=== PATIENT | female | born 1975 | race Caucasian/White ===

== ENCOUNTER → 2017-09-20 | Outpatient (CLI) | payer OTHER ==
[2016-07-19 00:07] VITALS: BP 95/62
[~2017-09-20] MED LIST: BENZ100C PO; HYDR-2758 PO; ONDA4TAB10 SL; PROAIR HFA8.5 GM INH
--- NOTE | 2017-09-20 17:06 | RAD ---
Pelvic ultrasound, 09/20/2017: History: Pain, recent endometrial ablation Transabdominal and transvaginal scans were obtained. The uterus is within normal limits in size measuring 8.6 x 4.6 x 4.8 cm. There is thickening of the central uterine echo complex which measures 1.6 cm in AP diameter. There is a tiny amount of fluid present centrally in the endometrial canal. The uterus is otherwise unremarkable. The ovaries are within normal limits in size. There is a 1.8 cm follicular cyst in the right ovary. There are smaller subcentimeter cysts in the left ovary. There is blood flow in both ovaries. No adnexal mass is seen. No free fluid is evident in the pelvis. IMPRESSION: 1. Mild thickening of the central uterine echo complex. 2. Small follicular cyst in the right ovary.
== END | disposition home or self-care (01) ==
LOC: US 15:13
PROVIDERS: ATTEND Obstetrics & Gynecology
DX: N83.01 Follicular cyst of right ovary (principal); Z98.890 Other specified postprocedural states
CPT/HCPCS: 76830; 76856

== ENCOUNTER 2017-10-26 12:37 | Emergency (ER) | payer BC, OTHER ==
[2017-10-26 12:54] LABS: URINE HCG POC HCG NEGATIVE (Negative)
[2017-10-26 13:33] LABS: ADD MAN DIFF? NO
[2017-10-26] MEDS: IV NORMAL SALINE 1000ML BAG 1,000 ML IV (13:43)
[2017-10-26] MEDS: FAMOTIDINE 20 MG/2 ML VIAL IVP (13:44)
[2017-10-26 13:47] LABS: BASO # 0.1 x10^3/uL (0.0-0.2); BASO % 1 % (0-3); EOS # 0.1 x10^3/uL (0.0-0.7); EOS % 3 % (0-3); HEMATOCRIT 42.9 % (36.0-47.0); HEMOGLOBIN 14.6 g/dL (12.0-15.5); LYMPH # 1.1 x10^3/uL (1.0-4.8); LYMPH % 23 % (24-48); MEAN CORPUSCULAR HEMOGLOBIN 34 pg (25-35); MEAN CORPUSCULAR HGB CONC 34 g/dL (31-37); MEAN CORPUSCULAR VOLUME 99 fL (79-100); MONO # 0.5 x10^3/uL (0.0-1.1); MONO % 10 % (0-9); NEUT % 64 % (31-73); PLATELET COUNT 264 x10^3/uL (140-400); RED BLOOD COUNT 4.34 x10^6/uL (3.50-5.40); RED CELL DISTRIBUTION WIDTH 12.3 % (11.5-14.5); WHITE BLOOD COUNT 4.7 x10^3/uL (4.0-11.0)
[2017-10-26 13:48] LABS: BILIRUBIN,URINE NEGATIVE (NEG); CLARITY,URINE CLEAR; COLOR,URINE YELLOW; GLUCOSE,URINE NEGATIVE (NEG); NITRITE,URINE NEGATIVE (NEG); PROTEIN,URINE NEGATIVE (NEG-TRACE)
[2017-10-26] MEDS: ONDANSETRON PF 4 MG/2 ML VIAL. IV (13:49)
[2017-10-26] MEDS: KETOROLAC 30 MG/ML INJ. IV (13:50)
[2017-10-26 13:52] LABS: ANION GAP 10 (6-14); BLOOD UREA NITROGEN 11 mg/dL (7-20); BUN/CREATININE RATIO 12 (6-20); CALCIUM 8.4 mg/dL (8.5-10.1); CARBON DIOXIDE 27 mmol/L (21-32); CHLORIDE 102 mmol/L (98-107); CREATININE 0.9 mg/dL (0.6-1.0); GFR 69.7; GLUCOSE 95 mg/dL (70-99); POTASSIUM 4.1 mmol/L (3.5-5.1); SODIUM 139 mmol/L (136-145)
[2017-10-26] MEDS: fentaNYL PF VIAL 100 MCG/2 ML VIAL IV ×2 (13:52→15:40)
[2017-10-26 13:56] LABS: ALBUMIN 3.6 g/dL (3.4-5.0); ALBUMIN/GLOBULIN RATIO 0.9 (1.0-1.7); ALK PHOS 71 U/L (46-116); ALT (SGPT) 17 U/L (14-59); AST (SGOT) 16 U/L (15-37); LIPASE 92 U/L (73-393); TOTAL BILIRUBIN 0.2 mg/dL (0.2-1.0); TOTAL PROTEIN 7.5 g/dL (6.4-8.2)
[2017-10-26 14:40] LABS: BACTERIA,URINE FEW /HPF (0-FEW); RBC,URINE OCC /HPF (0-2); SQUAMOUS EPITHELIAL CELL,UR MOD /LPF
== END 2017-10-26 16:35 | disposition home or self-care (01) ==
LOC: ER 12:37
DX: R10.30 Lower abdominal pain, unspecified (principal); R11.0 Nausea; R35.8 Other polyuria; R10.2 Pelvic and perineal pain; J45.909 Unspecified asthma, uncomplicated; F12.10 Cannabis abuse, uncomplicated; F17.200 Nicotine dependence, unspecified, uncomplicated; Z98.51 Tubal ligation status; Z86.19 Personal history of other infectious and parasitic diseases; Z88.8 Allergy status to other drugs, medicaments and biological substances; Z91.018 Allergy to other foods; Z91.048 Other nonmedicinal substance allergy status; Z88.5 Allergy status to narcotic agent
CPT/HCPCS: 36415; 80053; 81001; 81025; 83690; 85025; 87086; 96361; 96374; 96375; 96376; 99284-25; J1885; J2405; J3010; J7030; S0028

== ENCOUNTER 2018-12-04 06:45 | Emergency (ER) | payer BC ==
[~2018-12-04] VITALS: Ht 160 cm; Wt 81.6 kg
[~2018-12-04 06:45] MED LIST changes: +ALBU2.5V8 INH; -HYDR-2758 PO; +HYDR-2761 PO; -PROAIR HFA8.5 GM INH
[2018-12-04] MEDS ORDERED: MORPHINE SULFATE 4 MG/ML VIAL. IM ONE (07:30)
[2018-12-04] MEDS ORDERED: ONDANSETRON PF 4 MG/2 ML VIAL. IM ONE (07:30)
[2018-12-04] MEDS ORDERED: IV NORMAL SALINE 1000ML BAG 1,000 ML IV ONE (07:30)
[2018-12-04 07:41] LABS: BASO # 0.1 x10^3/uL (0.0-0.2); BASO % 1 % (0-3); EOS # 0.1 x10^3/uL (0.0-0.7); EOS % 2 % (0-3); HEMATOCRIT 43.4 % (36.0-47.0); HEMOGLOBIN 14.7 g/dL (12.0-15.5); LYMPH # 1.5 x10^3/uL (1.0-4.8); LYMPH % 21 % (24-48); MEAN CORPUSCULAR HEMOGLOBIN 33 pg (25-35); MEAN CORPUSCULAR HGB CONC 34 g/dL (31-37); MEAN CORPUSCULAR VOLUME 97 fL (79-100); MONO # 0.5 x10^3/uL (0.0-1.1); MONO % 7 % (0-9); NEUT # 4.8 x10^3uL (1.8-7.7); NEUT % 69 % (31-73); PLATELET COUNT 300 x10^3/uL (140-400); RED BLOOD COUNT 4.49 x10^6/uL (3.50-5.40); RED CELL DISTRIBUTION WIDTH 12.3 % (11.5-14.5)
[2018-12-04] MEDS ORDERED: IOHEXOL 300 MG/ML 100ML VIAL. IV ONE (07:45)
[2018-12-04 07:47] LABS: CREATININE 0.6 mg/dL (0.6-1.0); GFR 110.7; POTASSIUM 4.3 mmol/L (3.5-5.1)
[2018-12-04 07:53] LABS: ALBUMIN 3.3 g/dL (3.4-5.0); ALBUMIN/GLOBULIN RATIO 0.8 (1.0-1.7); TOTAL BILIRUBIN 0.3 mg/dL (0.2-1.0); TOTAL PROTEIN 7.2 g/dL (6.4-8.2)
[2018-12-04 07:54] LABS: PREG TEST PT QUAL NEGATIVE (NEG)
[2018-12-04] MEDS ORDERED: MORPHINE SULFATE 4 MG/ML VIAL. IV ONE (08:00)
[2018-12-04] MEDS ORDERED: ONDANSETRON PF 4 MG/2 ML VIAL. IV ONE (08:00)
--- NOTE | 2018-12-04 08:05 | PHYS DOC ---
Past Medical History Past Medical History: Asthma, Liver Disease, Other Additional Past Medical Histor: endometriosis, RECOVERING METH USER (KIMMIE THOMAS DO) Past Surgical History: Tubal ligation, Other Additional Past Surgical Histo: MULTIPLE CONE BX'S, uterine ablation, (KIMMIE THOMAS DO) Alcohol Use: Heavy Additional Information: BEER DAILY Drug Use: Marijuana Social History Narrative: LAST USE LAST NIGHT (KIMMIE THOMAS DO) Adult General Chief Complaint Chief Complaint: ABDOMINAL PAIN HPI HPI Patient is a 42 year old female presents to the due to chief complaint of right lower quadrant abdominal tenderness. Patient states that the pain started this morning. Patient states that she had a good bowel movement yesterday. She also states that yesterday evening she started having some diarrhea. Patient denies fever, chills, nausea, vomiting, dysuria, chest pain, shortness of breath. Patient states that she has had a tubal ligation. Patient states that she has history of hep C who has been treated with interferon. Patient does admit to being an active smoker, actively uses alcohol as well as marijuana. Patient describes the pain as sharp and that it is located in the right lower quadrant. Patient also denies vaginal bleeding, vaginal spotting, vaginal discharge. Patient states that she is has a history of uterine ablation. (KIMMIE THOMAS DO) Review of Systems Review of Systems Constitutional: Denies fever or chills HENT: Denies nasal congestion, sore throat, sinus tenderness Respiratory: Denies cough or shortness of breath Cardiovascular: Denies CP GI: Reports right lower quadrant abdominal tenderness : Denies dysuria or hematuria Musculoskeletal: Denies back pain or joint pain Skin: Denies rash or skin lesions Neurologic: Denies headache, focal weakness or sensory changes Complete systems were reviewed and found to be within normal limits, except as documented in this note. (KIMMIE THOMAS DO) Current Medications Current Medications Current Medications Medications (Trade) Dose Ordered Sig/[place] Start Time Stop Time Status Last Admin Dose Admin Acetaminophen/ Hydrocodone Bitart (Lortab 5/325) 1 tab 1X ONCE 12/04/18 10:45 12/04/18 10:46 DC 12/04/18 10:48 1 TAB Iohexol (Omnipaque 300 Mg/ml) 75 ml 1X ONCE 12/04/18 07:45 12/04/18 07:46 DC 12/04/18 08:15 75 ML Morphine Sulfate (Morphine Sulfate) 4 mg 1X ONCE 12/04/18 08:00 12/04/18 08:01 DC 12/04/18 07:54 4 MG Ondansetron HCl (Zofran) 4 mg 1X ONCE 12/04/18 08:00 12/04/18 08:01 DC 12/04/18 07:53 4 MG Sodium Chloride 1,000 ml @ 1,000 mls/hr 1X ONCE 12/04/18 07:30 12/04/18 08:29 DC 12/04/18 07:52 1,000 MLS/HR (ALEXI GAFFNEY DO) Allergies Allergies Allergies Coded Allergies Type Severity Reaction Last Updated Verified adhesive Allergy Intermediate 04/19/16 Yes metoclopramide HCl Allergy Intermediate hives 04/19/16 Yes morphine Allergy Intermediate ITCHY 04/19/16 Yes Uncoded Allergies Type Severity Reaction Last Updated Verified GREEN BEANS Allergy Unknown 04/28/14 (ALEXI GAFFNEY DO) Physical Exam Physical Exam Constitutional: Well developed, well nourished, no acute distress, non-toxic appearance. HENT: Normocephalic, atraumatic, normocaphalic Eyes: PERRL, EOMI Neck: Normal range of motion, no tenderness, supple Cardiovascular:Heart rate regular rhythm, no murmur Resp: Bilateral breath sounds clear to auscultation Abdomen: RLQ tenderness. guarding and rebound present. : On the pelvic exam Patient has right adnexal tenderness. No cervical motion tenderness. No vaginal discharge, bleeding or spotting. Skin: Warm, dry, no erythema, no rash. Back: No tenderness, no CVA tenderness. Extremities: No tenderness, ROM intact, no edema. Neurologic: Alert and oriented X 3, normal motor function, normal sensory function, no focal deficits noted. Psychologic: Affect normal, judgement normal, mood normal. (KIMMIE THOMAS DO) Current Patient Data Vital Signs Vital Signs Date Time Temp Pulse Resp B/P (MAP) Pulse Ox O2 Delivery O2 Flow Rate FiO2 12/04/18 10:48 16 97 Room Air 12/04/18 08:27 89 122/80 (94) 12/04/18 07:04 97.9 97.9 (ALEXI GAFFNEY DO) Lab Values Laboratory Tests Test 12/04/18 07:25 12/04/18 07:35 12/04/18 08:26 White Blood Count 7.0 x10^3/uL (4.0-11.0) Red Blood Count 4.49 x10^6/uL (3.50-5.40) Hemoglobin 14.7 g/dL (12.0-15.5) Hematocrit 43.4 % (36.0-47.0) Mean Corpuscular Volume 97 fL (79-100) Mean Corpuscular Hemoglobin 33 pg (25-35) Mean Corpuscular Hemoglobin Concent 34 g/dL (31-37) Red Cell Distribution Width 12.3 % (11.5-14.5) Platelet Count 300 x10^3/uL (140-400) Neutrophils (%) (Auto) 69 % (31-73) Lymphocytes (%) (Auto) 21 % (24-48) L Monocytes (%) (Auto) 7 % (0-9) Eosinophils (%) (Auto) 2 % (0-3) Basophils (%) (Auto) 1 % (0-3) Neutrophils # (Auto) 4.8 x10^3uL (1.8-7.7) Lymphocytes # (Auto) 1.5 x10^3/uL (1.0-4.8) Monocytes # (Auto) 0.5 x10^3/uL (0.0-1.1) Eosinophils # (Auto) 0.1 x10^3/uL (0.0-0.7) Basophils # (Auto) 0.1 x10^3/uL (0.0-0.2) Sodium Level 141 mmol/L (136-145) Potassium Level 4.3 mmol/L (3.5-5.1) Chloride Level 107 mmol/L (98-107) Carbon Dioxide Level 23 mmol/L (21-32) Anion Gap 11 (6-14) Blood Urea Nitrogen 12 mg/dL (7-20) Creatinine 0.6 mg/dL (0.6-1.0) Estimated GFR (Cockcroft-Gault) 110.7 BUN/Creatinine Ratio 20 (6-20) Glucose Level 110 mg/dL (70-99) H Calcium Level 9.0 mg/dL (8.5-10.1) Total Bilirubin 0.3 mg/dL (0.2-1.0) Aspartate Amino Transferase (AST) 19 U/L (15-37) Alanine Aminotransferase (ALT) 40 U/L (14-59) Alkaline Phosphatase 69 U/L (46-116) Total Protein 7.2 g/dL (6.4-8.2) Albumin 3.3 g/dL (3.4-5.0) L Albumin/Globulin Ratio 0.8 (1.0-1.7) L Serum Test, Qualitative Negative (NEG) Lactic Acid Level 1.3 mmol/L (0.4-2.0) Urine Collection Type Unknown Urine Color Yellow Urine Clarity Clear Urine pH 6.5 Urine Specific [place] 1.020 Urine Protein Negative mg/dL (NEG-TRACE) Urine Glucose (UA) Negative mg/dL (NEG) Urine Ketones (Stick) Negative mg/dL (NEG) Urine Blood Negative (NEG) Urine Nitrite Negative (NEG) Urine Bilirubin Negative (NEG) Urine Urobilinogen Dipstick 0.2 mg/dL (0.2 mg/dL) Urine Leukocyte Esterase Negative (NEG) Urine RBC 0 /HPF (0-2) Urine WBC 1-4 /HPF (0-4) Urine Squamous Epithelial Cells Many /LPF Urine Bacteria Moderate /HPF (0-FEW) Laboratory Tests 12/04/18 07:25 Laboratory Tests 12/04/18 07:25 (ALEXI GAFFNEY DO) EKG EKG [] (KIMMIE THOMAS E DO) Radiology/Procedures Radiology/Procedures CT STUDY ABDOMEN AND PELVIS WITH CONTRAST CLINICAL INDICATIONS: Right lower quadrant abdominal pain. TECHNIQUE: After IV infusion of 75 cc of Omnipaque 300, helical CT scanning of the abdomen and pelvis was performed. No GI contrast was administered. This may decrease the sensitivity to detect GI tract pathology. PQRS compliance Statement One or more of the following individualized dose reduction techniques were utilized for this study: 1. Automated exposure control 2. Adjustment of the mA and/or kV according to patient size 3. Use of iterative reconstruction technique COMPARISON: April 19, 2016. FINDINGS: The liver and spleen and pancreas and gallbladder are normal. No extrahepatic biliary ductal dilatation is seen. No adrenal mass is evident. Again seen is a hypodense nodule of the lateral aspect of the left kidney which measures 1.1 cm in size. This has not increased in size. This most likely is a small cyst. No hydronephrosis or hydroureter is seen. Urinary bladder wall is smooth. No dominant ovarian cyst or mass is evident. No uterine mass or fibroid is seen. No focal aneurysmal dilatation of the abdominal aorta is seen. No enlarged abdominal or pelvic lymphadenopathy is evident. The appendix is normal. The terminal ileum is unremarkable. No obstructive bowel pattern is seen. No free air or free fluid or mesenteric edema is seen. No lung base consolidation is evident. No lytic process is seen. IMPRESSION: No acute abnormality. Electronically signed by: Nimesh Pedro MD (12/04/2018 8:48 AM) [facility] (KIMMIE THOMAS DO) Impressions: PROCEDURE: PELVIS W/TV PELVIS W/TV Clinical Indication: Right-sided pelvic pain. Comparison: CT abdomen and pelvis with contrast, earlier same day. Pelvic ultrasound September 20, 2017. TECHNIQUE: Real-time ultrasound imaging of the pelvis using transabdominal and transvaginal window is performed. Findings: Urinary bladder is unremarkable. Uterus measures 6.6 x 3.8 x 4.3 cm. The myometrium is heterogeneous. There are punctate echogenicities of the lower uterine segment, stable from prior study. The endometrial stripe is normal measuring 4 mm. The left ovary measures 3.4 x 1.9 x 3 cm. There is a probable complex cyst that may be hemorrhagic in the central left ovary measuring up to 2.1 cm. Right ovary measures 2.2 x 1.8 x 1.9 cm. There is a functional cyst of the right ovary measuring up to 1.5 cm. There is normal blood flow in the ovaries. There is pelvic free fluid. No evidence of adnexal mass. IMPRESSION: 1. Probable small hemorrhagic cyst of the left ovary. 2. Normal blood flow in the ovaries. 3. Pelvic free fluid is probably physiologic. 4. Heterogeneous myometrium. (ALEXI GAFFNEY DO) Course & Med Decision Making Course & Med Decision Making Pertinent Labs and Imaging studies reviewed. (See chart for details) I have ordered labs, IV fluids, IV morphine, IV Zofran, CT abdomen and pelvis with IV contrast. Labs are within normal limits. Patient does not have WBC elevation. UA does not show UTI. Patient states that she took a Diflucan tablet yesterday and she just completed a course of antibiotics for dental infection. CT does not show any acute process. The appendix is normal. Abdomen pelvic exam shows that patient has right adnexal tenderness but no cervical motion tenderness. Patient also does not have any vaginal bleeding, vaginal spotting, vaginal discharge. I ordered an ultrasound of the pelvis as well as a transvaginal ultrasound. It Is Negative, Patient Can Be Discharged Home for Outpatient Follow-Up. I discussed the results as well as the plan of care patient. Appropriate discharge instructions given to patient to return to the emergency department and medical evaluation. (KIMMIE THOMAS DO) Dragon Disclaimer Dragon Disclaimer This electronic medical record was generated, in whole or in part, using a voice recognition dictation system. (KIMMIE THOMAS DO) Departure Departure Impression: Primary Impression: Pelvic pain Additional Impression: RLQ abdominal pain Disposition: 01 HOME, SELF-CARE Condition: IMPROVED Referrals: NO PCP (PCP) in 1-2 days Patient Instructions: Abdominal Pain (Nonspecific), Pelvic Pain, Female Additional Instructions: Discussed results and plan of care with patient. Patient is instructed to follow up with PCP in one to 2 days. Appropriate discharge instructions given to patient to return to the ED or to seek immediate medical evaluation. Scripts Hydrocodone/Apap 5-325 (NORCO 5-325 TABLET) 1 Each Tablet 1 EACH PO PRN Q6HRS PRN for PAIN, #15 as needed for pain Prov: KIMMIE THOMAS DO 12/04/18 Problem Qualifiers KIMMIE THOMAS DO Dec 04, 2018 08:05 ALEXI GAFFNEY DO Dec 04, 2018 10:58
[2018-12-04 08:45] LABS: BILIRUBIN,URINE NEGATIVE (NEG); CLARITY,URINE CLEAR; COLOR,URINE YELLOW; NITRITE,URINE NEGATIVE (NEG); PH,URINE 6.5; PROTEIN,URINE NEGATIVE (NEG-TRACE); UROBILINOGEN,URINE 0.2 mg/dL (0.2 mg/dL)
--- NOTE | 2018-12-04 08:51 | RAD ---
CT STUDY ABDOMEN AND PELVIS WITH CONTRAST CLINICAL INDICATIONS: Right lower quadrant abdominal pain. TECHNIQUE: After IV infusion of 75 cc of Omnipaque 300, helical CT scanning of the abdomen and pelvis was performed. No GI contrast was administered. This may decrease the sensitivity to detect GI tract pathology. PQRS compliance Statement One or more of the following individualized dose reduction techniques were utilized for this study: 1. Automated exposure control 2. Adjustment of the mA and/or kV according to patient size 3. Use of iterative reconstruction technique COMPARISON: April 19, 2016. FINDINGS: The liver and spleen and pancreas and gallbladder are normal. No extrahepatic biliary ductal dilatation is seen. No adrenal mass is evident. Again seen is a hypodense nodule of the lateral aspect of the left kidney which measures 1.1 cm in size. This has not increased in size. This most likely is a small cyst. No hydronephrosis or hydroureter is seen. Urinary bladder wall is smooth. No dominant ovarian cyst or mass is evident. No uterine mass or fibroid is seen. No focal aneurysmal dilatation of the abdominal aorta is seen. No enlarged abdominal or pelvic lymphadenopathy is evident. The appendix is normal. The terminal ileum is unremarkable. No obstructive bowel pattern is seen. No free air or free fluid or mesenteric edema is seen. No lung base consolidation is evident. No lytic process is seen. IMPRESSION: No acute abnormality. Electronically signed by: Nimesh Pedro MD (12/04/2018 8:48 AM) [facility]
[2018-12-04 08:52] LABS: SQUAMOUS EPITHELIAL CELL,UR MANY /LPF
[2018-12-04 08:53] LABS: BACTERIA,URINE MODERATE /HPF (0-FEW); RBC,URINE 0 /HPF (0-2)
[2018-12-04 10:03] VITALS: BP 103/64
[2018-12-04] MEDS ORDERED: HYDR-3164 PO (10:43)
[2018-12-04] MEDS ORDERED: HYDROcodone/APAP 5/325MG 1 TAB TABLET PO ONE (10:45)
--- NOTE | 2018-12-04 10:54 | RAD ---
PELVIS W/TV Clinical Indication: Right-sided pelvic pain. Comparison: CT abdomen and pelvis with contrast, earlier same day. Pelvic ultrasound September 20, 2017. TECHNIQUE: Real-time ultrasound imaging of the pelvis using transabdominal and transvaginal window is performed. Findings: Urinary bladder is unremarkable. Uterus measures 6.6 x 3.8 x 4.3 cm. The myometrium is heterogeneous. There are punctate echogenicities of the lower uterine segment, stable from prior study. The endometrial stripe is normal measuring 4 mm. The left ovary measures 3.4 x 1.9 x 3 cm. There is a probable complex cyst that may be hemorrhagic in the central left ovary measuring up to 2.1 cm. Right ovary measures 2.2 x 1.8 x 1.9 cm. There is a functional cyst of the right ovary measuring up to 1.5 cm. There is normal blood flow in the ovaries. There is pelvic free fluid. No evidence of adnexal mass. IMPRESSION: 1. Probable small hemorrhagic cyst of the left ovary. 2. Normal blood flow in the ovaries. 3. Pelvic free fluid is probably physiologic. 4. Heterogeneous myometrium. Electronically signed by: Dank Negron MD (12/04/2018 10:52 AM) [id number]
== END 2018-12-04 11:00 | disposition home or self-care (01) ==
LOC: ER 06:45
DX: R10.31 Right lower quadrant pain (principal); R10.2 Pelvic and perineal pain; R19.7 Diarrhea, unspecified; F17.200 Nicotine dependence, unspecified, uncomplicated; J45.909 Unspecified asthma, uncomplicated; F10.20 Alcohol dependence, uncomplicated; Y90.9 Presence of alcohol in blood, level not specified; Z88.5 Allergy status to narcotic agent; Z88.8 Allergy status to other drugs, medicaments and biological substances; Z98.51 Tubal ligation status; Z91.018 Allergy to other foods
CPT/HCPCS: 36415; 74177; 76830; 76856; 80053; 81001; 83605; 84703; 85025; 87086; 96361; 96374; 96375; 99284; J2270; J2405; J7030; Q9967

== ENCOUNTER → 2022-02-14 | Outpatient (CLI) | payer BC, OTHER ==
[~2022-02-14] MED LIST changes: +HYDR-3164 PO
--- NOTE | 2022-02-14 12:23 | KCIC ---
EXAM: Chest CT without intravenous contrast. HISTORY: Pulmonary nodule follow-up. Cigarette smoking history. TECHNIQUE: Computed tomographic images of the chest were obtained without contrast. Multiplanar refor matting was performed. *One or more of the following individualized dose reduction techniques were utilized for this examina tion: 1. Automated exposure control. 2. Adjustment of the mA and/or kV according to patient size. 3. Use of iterative reconstruction technique. COMPARISON: Abdomen and pelvis CT dated 12/04/2018.. FINDINGS: The heart is normal in size. The aorta is normal in caliber. There is no coronary artery ca lcification. There are normal-appearing mediastinal and hilar lymph nodes. There is no pneumothorax o r pleural effusion. There is mild emphysema. There is a new partially consolidated infiltrate or scarring within the anterior inferior right middl e lobe. There are few tiny nonspecific bilateral upper lobe groundglass and solid pulmonary nodules m easuring up to 2 mm. There is no acute finding involving the upper abdomen. There is no acute or suspicious osseous findin g. There is degenerative change involving the cervical spine, not formally assessed on this exam. IMPRESSION: 1. New partially consolidated infiltrate or scarring within the anterior inferior right middle lobe c ompared to a study performed 12/04/2018. Short-term follow-up with a chest CT in approximately 3 month s can be performed to confirm stability or resolution. 2. Scattered tiny nonspecific bilateral upper lobe pulmonary nodules measuring up to 2 mm, likely chelsea ign based on size. 3. Mild emphysema. Electronically signed by: Blossom Gan MD (02/14/2022 10:06 AM) [id number]
== END ==
LOC: KCIC CT 09:09
PROVIDERS: ATTEND Family Medicine
DX: R91.8 Other nonspecific abnormal finding of lung field (principal); J43.9 Emphysema, unspecified; M47.812 Spondylosis without myelopathy or radiculopathy, cervical region; Z87.891 Personal history of nicotine dependence
CPT/HCPCS: 71250